=== PATIENT | female | born 1990 | race Caucasian/White ===

== ENCOUNTER 2016-11-30 03:26 | Inpatient (IN) | payer MEDICAID ==
[~2016-11-30] VITALS: Ht 153.7 cm; Wt 77.4 kg
[2016-11-30 03:46] VITALS: BP 112/66; PULSE 81; RESP 18; Ht 153.7 cm; Wt 77.4 kg
[2016-11-30] MEDS ORDERED: MISOPROSTOL 200 MCG TAB PR PRN ×3 (04:00→18:30)
[2016-11-30] MEDS ORDERED: METHYLERGONOVINE 0.2 MG INJ IM PRN ×3 (04:00→18:30)
[2016-11-30] MEDS ORDERED: OXYTOCIN 30 UNITS/LR 500 ML IV SCH ×2 (04:00)
[2016-11-30] MEDS ORDERED: CARBOPROST 250 MCG INJ IM PRN ×3 (04:00→18:30)
[2016-11-30] MEDS ORDERED: AMPICILLIN 2 GM/NS (PMX) 100 ML IV ONE (04:00)
[2016-11-30] MEDS ORDERED: BUTORPHANOL 2 MG INJ IV PRN (04:00)
[2016-11-30] MEDS ORDERED: ACETAMINOPHEN/CODEINE #3 TAB PO PRN ×3 (04:00→07:30)
[2016-11-30] MEDS ORDERED: IBUPROFEN 600 MG TAB PO PRN (04:00)
[2016-11-30] MEDS ORDERED: OXYTOCIN 30 UNITS/LR 500 ML IV PRN ×3 (04:00→18:30)
[2016-11-30] MEDS ORDERED: LIDOCAINE 1% (MPF) 30 ML INJ INJ PRN (04:00)
[2016-11-30 04:46] LABS: INR 0.92; PROTIME 12.4 Sec (12.2-14.2)
[2016-11-30 04:47] LABS: PARTIAL THROMBOPLASTIN TIME 26.3 Sec (25.0-35.0)
[2016-11-30] MEDS: LACTATED RINGER'S 1,000 ML IV SCH ×2 (04:48→05:16)
[2016-11-30 04:55] LABS: BARBITURATES NEGATIVE (NEGATIVE); BENZODIAZEPINES NEGATIVE (NEGATIVE); CANNABINOIDS NEGATIVE (NEGATIVE); COCAINE NEGATIVE (NEGATIVE); OPIATES NEGATIVE (NEGATIVE)
[2016-11-30 04:56] LABS: BASOPHIL # 0.1 10^3/ul (0.0-0.1); BASOPHILS % 0.3 % (0.0-2.0); EOSINOPHILS # 0.2 10^3/ul (0.0-0.5); EOSINOPHILS % 1.1 % (0.0-7.0); HEMATOCRIT 38.3 % (37.0-47.0); HEMOGLOBIN 13.1 g/dl (12.0-16.0); LYMPHOCYTES % 25.2 % (15.0-51.0); MEAN CORPUSCULAR HEMOGLOBIN 32.7 pg (29.0-33.0); MEAN CORPUSCULAR HGB CONC 34.2 g/dl (32.0-37.0); MEAN CORPUSCULAR VOLUME 95.3 fl (82.0-101.0); MEAN PLATELET VOLUME 8.8 fl (7.4-10.4); MONOCYTE # 0.9 10^3/ul (0.3-0.9); MONOCYTES % 5.9 % (0.0-11.0); NEUTROPHIL # 10.7 10^3/ul (1.6-7.5); NEUTROPHILS % 67.5 % (39.0-77.0); PLATELET COUNT 165 10^3/UL (140-440); RED BLOOD COUNT 4.02 10^6/ul (4.20-5.40); RED CELL DISTRIBUTION WIDTH 12.7 % (11.5-14.5); UNCORRECTED WBC 15.9 10^3/ul (4.8-10.8); WHITE BLOOD COUNT 15.9 10^3/ul (4.8-10.8)
[2016-11-30] MEDS ORDERED: LACTATED RINGER'S 1,000 ML IV PRN (05:00)
[2016-11-30 05:01] LABS: CONDITION 1
--- NOTE | 2016-11-30 05:12 | RADRPT ---
PROCEDURE: ULTRASOUND OBSTETRICAL CLINICAL INDICATION: 26-year-old female with contractions for size and date determination . TECHNIQUE: Multiple sonographic images of the pelvis were obtained. The images were reviewed on a PACS workstation. COMPARISON: No prior studies are available for comparison. FINDINGS: The cervix is not well visualized. There is a single viable intrauterine gestation. Cardiac activit y is present with 128 beats per minute. There is a vertex presentation. Measurements were made in or [place] to determine age. The results are as follows: BPD = 8.94 cm, HC = 31.90 cm, AC = 32.49 cm, FL = 6.96 cm. This yields and estimated gestational ag e of approximately 36 weeks 0 days. The estimated date of delivery is December 28, 2016. The EFW = 2863 +/- 429 g (6 lb 5 oz). The GP is 18%. The placenta is posterior. There is no evidence for an abruption or placenta previa. IMPRESSION: 1. Single viable intrauterine gestation of approximately 36 weeks 0 days with vertex presentation. The estimated date of delivery is December 28, 2016. 2. The estimated weight is 2863 +/- 429 g (6 lb 5 oz). The GP is 18%. .Alfredo Pena MD, Date Time Electronically viewed and signed by .Alfredo Pena MD, MD on 11/30/2016 05:11 .Max/
--- NOTE | 2016-11-30 05:15 | RADRPT ---
PROCEDURE: ULTRASOUND BIOPHYSICAL PROFILE CLINICAL INDICATION: 26-year-old female with contractions for viability. TECHNIQUE: Multiple sonographic images were obtained in order to perform a biophysical profile The images were reviewed on a PACS workstation. COMPARISON: None. FINDINGS: There is a single viable intrauterine gestation. There is a vertex presentation. Cardiac activity i s present at 118 beats per minute. The placenta is posterior. The results of the biophysical profil e are as follows: breathing movement = 2/2 Gross body movement = 2/2 tone = 2/2 Qualitative amniotic fluid volume = 2/2 Amniotic fluid index equals 13.1 cm. This yields a biophysical profile score of 8/8. IMPRESSION: Biophysical profile score is 8/8. .Alfredo Pena MD, Date Time Electronically viewed and signed by .Alfredo Pena MD, MD on 11/30/2016 05:14 .M/
--- NOTE | 2016-11-30 06:02 | HP ---
Date/Time of Note Date/Time of Note DATE: 11/30/16 TIME: 05:56 OB - History Hx of Present Free Text/Dictation Pt is a 26yo at 38+0 by reported EDC who presents with c/o painful UCs since 2299. Pt reports normal FM between UCs, denies LOF or VB. course c/b GDM controlled by Metformin 500mg BID. Pt has been receiving care at [facility]. Care: Good Care (per pt report. Records are not available) Obstetrical Complications: Gestational Diabetes Past Family/Social History * Past Medical, Surgical, Family and Obstetric Histories reviewed from chart. GBS Status: Unknown OB Admission Exam Vital Signs Vital Signs Vital Signs Date Time Temp Pulse Resp B/P Pulse Ox O2 Delivery O2 Flow Rate FiO2 11/30/16 03:46 97.6 81 18 112/66 Room Air Physical Exam HEENT: WNL Heart: Rhythm Normal Lungs: Clear Abdomen: WNL Extremities: Normal Cervical Dilatation: 6cm Effacement: Other (60%) Station: -3 Membranes: Intact Heart Rate: 120's Accelerations: Accelerations Present Decelerations: No Decelerations Varibility: Moderate Contractions on Admission: 6-10 Minutes Apart Intensity: Moderate Last 72 hourBlood Glucose Bedside Glucose - 72 Hours Test 11/30/16 04:25 Bedside Glucose 82mg/dL (70-220) Last 72 hours Lab Results CBC & BMP 11/30/16 04:15 OB Assessment/Plan Reason for admission: active labor Plan: Expectant Management Other plan: Reassuring FHT, Category 1 GBS unknown, will follow risk-based protocol Pain control per pt desire EFW measuring 36wks GA, BPP and MAMTA wnl Check FSBG q2H during labor, Random FSBG 82 in triage. SISS as needed AVIS COATES MD Nov 30, 2016 06:01
--- NOTE | 2016-11-30 07:22 | LDN ---
Date/Time of Note Date/Time of Note DATE: 11/30/16 TIME: 07:08 Delivery Summary Pt progressed to c/c/-1 and labored down to 0 station. She then pushed with good effort to +2, however deep variables were noted to the 60s with pushing. The FHT returned to baseline following pushing, however at times had slow return. Variability largely moderate. Patient then began pushing with alternating contractions, however decels remained. Using a aerial photograph interpreter Greta, educational interpreter #[id number], the R/B/A of VAVD (as a double setup in the OR) versus RLTCS were discussed in detail including risks of vacuum which include but are not limited to cephalohematoma, subgaleal hemorrhage, retinal hemorrhage , shoulder dystocia, scalp lacerations and failure. The patient initially desired a RLTCS after being counseled on risks of operative delivery and pt was taken to the OR. En route, however, pt changed her mind and expressed a desire for a trial of vacuum delivery. Pt pushed under epidural anesthesia in the OR under a double setup to a via vaccuum assist of a liveborn male infant weighing 2950g with Apgars of 9 and 9 at 1 and 5 min respectively. Over three contractions with no pull-offs, the head delivered from ROSIBEL position and the vacuum was removed. The R anterior shoulder followed by the posterior shoulder and the remainder of the body was delivered through a nuchal cord x1. The infant was vigorous at and placed on mother's abdomen. The pt received standard IV Pitocin. The cord was doubly clamped and cut and the baby was taken to the warmer for evaluation by RT and NICU nurses given the operative delivery. Cord blood was collected. An intact 3VC placenta spontaneously delivered shortly thereafter. The fundus was noted to be firm. Inspection of the vagina and perineum revealed a 3rd degree (3b) perineal lacerations and a hemostatic L labial laceration which was not repaired. The 3rd degree laceration was repaired with a combination of regional and local anesthesia using 0 Vicryl suture. Using end-to-end method, interrupted sutures were placed to bring the ends together. The second degree was repaired in the usual fashion using 3-0 Vicryl. The patient received Ancef 2g IV x1. Hemostasis was appropriate following repair. Several rectal examinations were done which confirmed no defect or palpable suture. Infant and mother recovering in PACU. EBL 400ml Assisted Vaginal Delivery: Vacuum Placenta Delivered: Spontaneously Meconium: none Perineum intact?: No Perineal laceration: 3 Anesthesia type: Local Estimated blood loss: 400 Sponge & Needle done & correct: Yes All needle counts correct: Yes Any foreign bodies felt in the: No Problems: Infant Delivery Information Sex Infant Sex: male Apgars 1 Minute: 9 5 Minute: 9 Suctioning Nose & mouth suctioned at jeyson: No Delee suction performed: No Umbilical Cord Umbilical cord with: 3 Vessels Cord presentations: nuchal cord Nuchal cord present X: 1 Cord Blood was obtained: Yes Mother & Baby Disposition Disposition Mom & Baby to Maternity; Good: Yes Baby to NICU: No AVIS COATES MD Nov 30, 2016 07:19
[2016-11-30] MEDS ORDERED: LANOLIN 7 GM TUBE TOP PRN ×2 (07:30→18:30)
[2016-11-30] MEDS ORDERED: DIBUCAINE 1% 30 GM OINT PR PRN (07:30)
[2016-11-30] MEDS ORDERED: DIPHENHYDRAMINE 50 MG INJ IV PRN (07:30)
[2016-11-30] MEDS ORDERED: ACETAMINOPHEN 325 MG TAB PO PRN (07:30)
[2016-11-30] MEDS ORDERED: ONDANSETRON 4 MG INJ IV PRN (07:30)
[2016-11-30] MEDS ORDERED: BENZOCAINE 20% 56 ML SPRAY TOP PRN ×2 (07:30→18:30)
[2016-11-30] MEDS ORDERED: AMPICILLIN 1 GM/NS (PMX) 50 ML IV SCH (08:00)
--- NOTE | 2016-11-30 08:38 | LDN ---
Date/Time of Note Date/Time of Note DATE: 11/30/16 TIME: 08:37 Delivery Summary Placenta Delivered: Spontaneously Meconium: none, Light Perineum intact?: No Perineal laceration: 2 Perineal laceration repair: yes Anesthesia type: Local Estimated blood loss: 200 Sponge & Needle done & correct: Yes All needle counts correct: Yes Any foreign bodies felt in the: No Problems: Delivery Information Apgars 1 Minute: 9 5 Minute: 9 Suctioning Nose & mouth suctioned at jeyson: Yes Delee suction performed: Yes Umbilical Cord Umbilical cord with: 3 Vessels Cord presentations: nuchal cord Cord Blood was obtained: Yes Mother & Baby Disposition Disposition Mom & Baby to Maternity; Good: Yes Baby to NICU: No MALAIKA NOLAND M.D. Nov 30, 2016 08:38
--- NOTE | 2016-11-30 08:49 | DELSUM ---
Delivery Summary A-C Datetime Report Generated by CPN: 11/30/2016 08:48 DELIVERY PERSONNEL Cnc Service Technician: Ghukasyan, Ivis MATERNAL INFORMATION Delivery Anesthesia: Local Medications in Delivery: 30 UNITS OF PIT IN 500 CC LR Estimated Blood Loss (ml): 200 Placenta Cultured: No Maternal Complications: None RN Comments: A2DM LABOR SUMMARY EDC: 12/14/2016 00:00 EDC: 12/14/2016 00:00 No. Babies in Womb: 1 Attempted: No Labor Anesthesia: None LABOR INFORMATION Reason for Induction: Not Applicable Onset of Labor: 11/29/2016 23:00 Complete Dilatation: 11/30/2016 08:11 Oxytocin: N/A Group B Beta Strep: Done, Result Unknown Group B Beta Strep: Done, Result Unknown Antibiotics # of Doses: 1 Antibiotics Time of Last Dose: 0530 Steroids Given: None Reason Steroids Not Administered: Not Applicable MEMBRANES Membranes Rupture Method: Artificial Rupture of Membranes: 11/30/2016 07:59 Length of Rupture (hr): 0.27 Amniotic Fluid Color: Light Meconium Amniotic Fluid Amount: Small Amniotic Fluid Odor: Normal STAGES OF LABOR Stage 1 hr: 9 Stage 1 min: 11 Stage 2 hr: 0 Stage 2 min: 4 Stage 3 hr: 0 Stage 3 min: 2 Total Time in Labor hr: 9 Total Time in Labor min: 17 VAGINAL DELIVERY Episiotomy: None Laceration Extension: Second Degree Laceration Type: Perineal Laceration Repair: Yes Initial Vag Sponge Count: 20 Final Vag Sponge Count: 20 Initial Vag Sharps Count: 1 Final Vag Sharps Count: 2 Sponge Count Correct: Yes Sharps Count Correct: Yes Count Comment: 1 SHARP ADDED DURING DELIVERY BABY A INFORMATION Infant Delivery Date/Time: 11/30/2016 08:15 Method of Delivery: Vaginal Method of Delivery: Vaginal Born in Route : No : N/A Forceps: N/A Vacuum Extraction: N/A Shoulder Dystocia : N/A SHOULDER DYSTOCIA BABY A Infant Delivery Date/Time: 11/30/2016 08:15 PRESENTATION/POSITION BABY A Presentation: Cephalic Presentation: Unable to Assess Cephalic Presentation: Vertex Vertex Position: Left Occipital Anterior Breech Presentation: N/A PLACENTA INFORMATION BABY A Placenta Delivery Time : 11/30/2016 08:17 Placenta Method of Delivery: Spontaneous Placenta Method of Delivery: Spontaneous Placenta Status: Delivered SCORES BABY A Heart Rate 1 min: >100 bpm Resp Effort 1 min: Good Cry Reflex Irritability 1 min: Cough/Sneeze/Pulls Away Muscle Tone 1 min: Active Motion Color 1 min: Body [place], Extremit Blue Resuscitation Effort 1 min: Tactile Stimulation SCORE 1 MIN: 9 Heart Rate 5 min: >100 bpm Resp Effort 5 min: Good Cry Reflex Irritability 5 min: Cough/Sneeze/Pulls Away Muscle Tone 5 min: Active Motion Color 5 min: Body [place], Extremit Blue Resuscitation Effort 5 min: Tactile Stimulation SCORE 5 MIN: 9 INFANT INFORMATION BABY A Gestational Age at Delivery: 38.0 Gestational Status: Early Term- 37- 38.6 Weeks Infant Outcome : Liveborn Condition : Stable Infant Sex: Female Sex: Female IDENTIFICATION/MEDS BABY A ID Band Number: [id number] ID Band Location: Right Leg; Left Arm Sensor Applied: Yes Sensor Number: [id number] Sensor Location : Cord Clamp Vitamin K Given : Not Given Erythromycin Given: Not Given WEIGHT/LENGTH BABY A Infant Birthweight (gm): 2615 Infant Weight (lb): 5 Infant Weight (oz): 12 Length (in): 19.00 Length (cm): 48.26 CORD INFORMATION BABY A No. Cord Vessels: 3 Nuchal Cord : Around Neck x1, Loose Cord Blood Taken: Yes Suction: Mouth; Nose ASSESSMENT BABY A Complications: None Physical Findings at Delivery: Within Normal Limits Infant Respirations: Appears Normal Assembler Wire Mesh Gate/ALS Called : No Infant Care By: ARABELLA ROMO Transferred To: Remains with Mother
[2016-11-30] MEDS ORDERED: SENNA/DOCUSATE NA (8.6MG/50MG) TAB PO SCH (09:00)
[2016-11-30] MEDS ORDERED: OXYTOCIN 30 UNITS/LR 500 ML IVPB ONE (09:30)
[2016-11-30] MEDS: OXYTOCIN 30 UNITS/LR 500 ML IV SCH ×3 (09:43→17:30)
--- NOTE | 2016-11-30 10:12 | OPRPT ---
Intraop Record Datetime Report Generated by CPN: 11/30/2016 10:11 Datetime: 11/30/2016 03:38 Drug Allergies/Reactions: No Known Drug Allergies (11/30/2016) Datetime: 11/30/2016 03:31 Latex Allergies/Reactions: No Latex Allergies
--- NOTE | 2016-11-30 10:12 | DELSUM ---
Delivery Summary A-C Datetime Report Generated by CPN: 11/30/2016 10:11 DELIVERY PERSONNEL Pumper Head: Ghukasyan, Ivis MATERNAL INFORMATION Delivery Anesthesia: Local Medications in Delivery: 30 UNITS OF PIT IN 500 CC LR Estimated Blood Loss (ml): 200 Placenta Cultured: No Maternal Complications: None RN Comments: A2DM LABOR SUMMARY EDC: 12/14/2016 00:00 EDC: 12/14/2016 00:00 No. Babies in Womb: 1 Attempted: No Labor Anesthesia: None LABOR INFORMATION Reason for Induction: Not Applicable Onset of Labor: 11/29/2016 23:00 Complete Dilatation: 11/30/2016 08:11 Oxytocin: N/A Group B Beta Strep: Done, Result Unknown Group B Beta Strep: Done, Result Unknown Antibiotics # of Doses: 1 Antibiotics Time of Last Dose: 0530 Steroids Given: None Reason Steroids Not Administered: Not Applicable MEMBRANES Membranes Rupture Method: Artificial Rupture of Membranes: 11/30/2016 07:59 Length of Rupture (hr): 0.27 Amniotic Fluid Color: Light Meconium Amniotic Fluid Amount: Small Amniotic Fluid Odor: Normal STAGES OF LABOR Stage 1 hr: 9 Stage 1 min: 11 Stage 2 hr: 0 Stage 2 min: 4 Stage 3 hr: 0 Stage 3 min: 2 Total Time in Labor hr: 9 Total Time in Labor min: 17 VAGINAL DELIVERY Episiotomy: None Laceration Extension: Second Degree Laceration Type: Perineal Laceration Repair: Yes Initial Vag Sponge Count: 20 Final Vag Sponge Count: 20 Initial Vag Sharps Count: 1 Final Vag Sharps Count: 2 Sponge Count Correct: Yes Sharps Count Correct: Yes Count Comment: 1 SHARP ADDED DURING DELIVERY BABY A INFORMATION Infant Delivery Date/Time: 11/30/2016 08:15 Method of Delivery: Vaginal Method of Delivery: Vaginal Born in Route : No : N/A Forceps: N/A Vacuum Extraction: N/A Shoulder Dystocia : N/A SHOULDER DYSTOCIA BABY A Infant Delivery Date/Time: 11/30/2016 08:15 PRESENTATION/POSITION BABY A Presentation: Cephalic Presentation: Unable to Assess Cephalic Presentation: Vertex Vertex Position: Left Occipital Anterior Breech Presentation: N/A PLACENTA INFORMATION BABY A Placenta Delivery Time : 11/30/2016 08:17 Placenta Method of Delivery: Spontaneous Placenta Method of Delivery: Spontaneous Placenta Status: Delivered SCORES BABY A Heart Rate 1 min: >100 bpm Resp Effort 1 min: Good Cry Reflex Irritability 1 min: Cough/Sneeze/Pulls Away Muscle Tone 1 min: Active Motion Color 1 min: Body [place], Extremit Blue Resuscitation Effort 1 min: Tactile Stimulation SCORE 1 MIN: 9 Heart Rate 5 min: >100 bpm Resp Effort 5 min: Good Cry Reflex Irritability 5 min: Cough/Sneeze/Pulls Away Muscle Tone 5 min: Active Motion Color 5 min: Body [place], Extremit Blue Resuscitation Effort 5 min: Tactile Stimulation SCORE 5 MIN: 9 INFANT INFORMATION BABY A Gestational Age at Delivery: 38.0 Gestational Status: Early Term- 37- 38.6 Weeks Infant Outcome : Liveborn Condition : Stable Infant Sex: Female Sex: Female IDENTIFICATION/MEDS BABY A ID Band Number: [id number] ID Band Location: Right Leg; Left Arm Sensor Applied: Yes Sensor Number: [id number] Sensor Location : Cord Clamp Vitamin K Given : Not Given Erythromycin Given: Not Given WEIGHT/LENGTH BABY A Infant Birthweight (gm): 2615 Infant Weight (lb): 5 Infant Weight (oz): 12 Length (in): 19.00 Length (cm): 48.26 CORD INFORMATION BABY A No. Cord Vessels: 3 Nuchal Cord : Around Neck x1, Loose Cord Blood Taken: Yes Suction: Mouth; Nose ASSESSMENT BABY A Complications: None Physical Findings at Delivery: Within Normal Limits Infant Respirations: Appears Normal Hob Grinder/ALS Called : No Infant Care By: ARABELLA ROMO Transferred To: Remains with Mother
[2016-11-30 10:30] VITALS: BP 117/57; PULSE 82; RESP 16
[2016-11-30 12:00] VITALS: BP 106/55; RESP 20
[2016-11-30] MEDS: IBUPROFEN 600 MG TAB PO SCH ×2 (12:37→17:51)
[2016-11-30] MEDS: LACTATED RINGER'S 1,000 ML IV* SCH ×3 (13:30→18:11)
[2016-11-30 16:00] VITALS: BP 111/58; PULSE 80; RESP 19
[2016-11-30] MEDS ORDERED: WITCH HAZEL/GLYCERIN PAD PR PRN (18:30)
[2016-11-30] MEDS ORDERED: SENNA/DOCUSATE NA (8.6MG/50MG) TAB PO PRN (18:30)
[2016-11-30] MEDS ORDERED: OXYCODONE/ASPIRIN (4.88/325) TAB PO PRN (18:30)
[2016-11-30] MEDS ORDERED: ZOLPIDEM 5 MG TAB PO PRN (18:30)
[2016-11-30 20:10] VITALS: BP 120/69; PULSE 82; RESP 18
[2016-11-30] MEDS: SENNA/DOCUSATE NA (8.6MG/50MG) TAB PO SCH (20:56)
[2016-12-01] VITALS: BP 110/69; PULSE 69; RESP 18
[2016-12-01] MEDS: IBUPROFEN 600 MG TAB PO SCH ×4 (00:29→17:59)
[2016-12-01 03:51] VITALS: BP 88/52; PULSE 78; RESP 18
[2016-12-01 07:55] VITALS: BP 108/57; PULSE 79; RESP 16
[2016-12-01] MEDS: LACTATED RINGER'S 1,000 ML IV* SCH (08:07)
[2016-12-01 08:20] LABS: BASOPHIL # 0.1 10^3/ul (0.0-0.1); BASOPHILS % 0.4 % (0.0-2.0); EOSINOPHILS # 0.3 10^3/ul (0.0-0.5); EOSINOPHILS % 1.7 % (0.0-7.0); HEMATOCRIT 35.4 % (37.0-47.0); HEMOGLOBIN 12.3 g/dl (12.0-16.0); LYMPHOCYTES # 3.7 10^3/ul (0.8-2.9); MEAN CORPUSCULAR HEMOGLOBIN 33.5 pg (29.0-33.0); MEAN CORPUSCULAR HGB CONC 34.8 g/dl (32.0-37.0); MEAN CORPUSCULAR VOLUME 96.4 fl (82.0-101.0); MEAN PLATELET VOLUME 9.1 fl (7.4-10.4); MONOCYTE # 0.8 10^3/ul (0.3-0.9); MONOCYTES % 4.7 % (0.0-11.0); NEUTROPHIL # 11.3 10^3/ul (1.6-7.5); NEUTROPHILS % 70.2 % (39.0-77.0); PLATELET COUNT 163 10^3/UL (140-440); RED BLOOD COUNT 3.67 10^6/ul (4.20-5.40); RED CELL DISTRIBUTION WIDTH 12.6 % (11.5-14.5); UNCORRECTED WBC 16.1 10^3/ul (4.8-10.8); WHITE BLOOD COUNT 16.1 10^3/ul (4.8-10.8)
[2016-12-01 08:34] LABS: CONDITION 1; LH ANALYZER COMMENTS 1; SUSPECT 1
[2016-12-01] MEDS: SENNA/DOCUSATE NA (8.6MG/50MG) TAB PO SCH ×2 (09:25→21:19)
[2016-12-01 16:00] VITALS: BP 119/71; PULSE 87; RESP 18
--- NOTE | 2016-12-01 18:18 | QN ---
Documentation Comment ppd1 pt doing well exam wnl continue care plan dc home ELADIO Stephens MD Dec 01, 2016 18:18
[2016-12-01 19:50] VITALS: BP 129/71; PULSE 82; RESP 18
[2016-12-02] MEDS: IBUPROFEN 600 MG TAB PO SCH ×4 (00:15→18:05)
[2016-12-02 03:54] VITALS: BP 109/66; PULSE 64; RESP 18
[2016-12-02 07:54] VITALS: BP 112/56; PULSE 63; RESP 18
[2016-12-02] MEDS: SENNA/DOCUSATE NA (8.6MG/50MG) TAB PO SCH (08:48)
[2016-12-02] MEDS ORDERED: DIPHTH/TET/ACEL PERTUSS (ADULT) 0.5 ML VIAL IM* ONE ×2 (09:00)
[2016-12-02 12:41] LABS: RUBELLA ANTIBODY - IGG 3.51
--- NOTE | 2016-12-02 14:59 | QN ---
Documentation Comment PPD#2 is stable afebrile tolerates diet No VB +BM +Voids No sign of depression VS stable Gen NAD Abd Soft NT ND Genitalia No blood at perinium --->discharge plan MALAIKA NOLAND M.D. Dec 02, 2016 14:59
[2016-12-02 16:00] VITALS: BP 133/83; PULSE 74; RESP 18
== END 2016-12-02 19:04 | disposition home or self-care (01) | DRG 775 ==
LOC: OBT 03:26 → L-D 03:28 → OBT 04:06 → L-D 04:06 → PP1 10:39
PROVIDERS: ADMIT Obstetrics & Gynecology; ATTEND Obstetrics & Gynecology
PROC: 10E0XZZ Delivery of Products of Conception, External Approach (ICD-10-PCS; principal; 2016-11-30)
PROC: 0KQM0ZZ Repair Perineum Muscle, Open Approach (ICD-10-PCS; 2016-11-30)
DX: O60.14X0 Preterm labor third trimester with preterm delivery third trimester, not applicable or unspecified (principal); O69.81X0 Labor and delivery complicated by cord around neck, without compression, not applicable or unspecified; O70.1 Second degree perineal laceration during delivery; Z3A.36 36 weeks gestation of pregnancy; Z37.0 Single live birth
CPT/HCPCS: 36415; 76815; 76818; 80307; 82962; 85025; 85610; 85730; 86592; 86703; 86762; 86900; 86901; 87340; 90715; 96360; G0463; J0290; J2590; J7120